=== PATIENT | female | born 1990 | race Caucasian/White ===

== ENCOUNTER → 2019-08-17 14:38 | Outpatient (BNVA) | payer BC, SELFPAY | PROVIDERS: Visit Provider Psychiatry & Neurology Psychiatry | DX: F41.1 Generalized anxiety disorder (principal); F33.0 Major depressive disorder, recurrent, mild | CPT/HCPCS: 99204 ==

== ENCOUNTER → 2019-09-01 11:16 | Outpatient (BNVA) | payer BC, SELFPAY | PROVIDERS: Visit Provider Obstetrics & Gynecology | DX: N85.01 Benign endometrial hyperplasia (principal) | CPT/HCPCS: 88305 ==

== ENCOUNTER → 2019-09-29 09:06 | Outpatient (BNVA) | payer BC, SELFPAY | PROVIDERS: Visit Provider Psychiatry & Neurology Psychiatry | DX: F33.0 Major depressive disorder, recurrent, mild (principal); F41.1 Generalized anxiety disorder | CPT/HCPCS: 99213 ==

== ENCOUNTER 2019-12-03 06:57 | Outpatient (CLI) | payer BC, SELFPAY ==
[2019-12-03 08:22] LABS: SARS Covid-2 Antigen Negative (Negative)
[2019-12-05 14:26] LABS: Coronavirus Lab Test PTC Positive
== END 2019-12-03 06:58 | disposition home or self-care (01) ==
PROVIDERS: Obstetrics & Gynecology; Visit Provider Emergency Medicine
DX: Z11.59 Encounter for screening for other viral diseases (principal)
CPT/HCPCS: 87426; 87635

== ENCOUNTER → 2020-02-21 13:02 | Outpatient (BNVA) | payer BC, SELFPAY | PROVIDERS: Visit Provider Obstetrics & Gynecology | DX: N85.01 Benign endometrial hyperplasia (principal) | CPT/HCPCS: 81025; 88305 ==

== ENCOUNTER → 2020-05-17 08:05 | Outpatient (BNVA) | payer BC, SELFPAY | PROVIDERS: Visit Provider Psychiatry & Neurology Psychiatry | DX: F33.0 Major depressive disorder, recurrent, mild (principal); F41.1 Generalized anxiety disorder | CPT/HCPCS: 99214 ==

== ENCOUNTER → 2020-08-09 12:50 | Outpatient (BNVA) | payer BC, SELFPAY | PROVIDERS: Visit Provider Psychiatry & Neurology Psychiatry | DX: F33.0 Major depressive disorder, recurrent, mild (principal); F41.1 Generalized anxiety disorder | CPT/HCPCS: 99213 ==

== ENCOUNTER → 2022-06-23 16:18 | Outpatient (BNVA) | payer BC, SELFPAY | PROVIDERS: PCP Nurse Practitioner Family; Visit Provider Nurse Practitioner Family | DX: E28.2 Polycystic ovarian syndrome (principal) | CPT/HCPCS: 80053; 83036; 84439; 84443; 84481 ==

== ENCOUNTER → 2023-02-03 10:20 | Outpatient (BNVA) | payer BC, SELFPAY | PROVIDERS: PCP Nurse Practitioner Family; Visit Provider Nurse Practitioner Family | DX: E28.2 Polycystic ovarian syndrome (principal) | CPT/HCPCS: 80053; 83036 ==